=== PATIENT | male | born 1975 | race Caucasian/White ===

== ENCOUNTER 2023-01-18 10:49 | Emergency (ER) | payer BC ==
[2023-01-18] MEDS ORDERED: Bupivacaine 0.5% 10 ML SDV INJECT ONE (11:16)
[2023-01-18] MEDS ORDERED: Lidocaine 1% 10 ML MDV INJECT ONE (11:16)
[2023-01-18] MEDS ORDERED: LORazepam 1 MG Tab PO ONE (11:39)
[2023-01-18] MEDS ORDERED: Cephalexin 500 MG Cap PO ONE (13:28)
== END 2023-01-18 13:52 | disposition home or self-care (01) ==
LOC: JD.ED 10:49
DX: S62.633B Displaced fracture of distal phalanx of left middle finger, initial encounter for open fracture (principal); I10 Essential (primary) hypertension; W23.1XXA Caught, crushed, jammed, or pinched between stationary objects, initial encounter; Y99.0 Civilian activity done for income or pay
CPT/HCPCS: 12002; 73140; 99283; A9270; J3490

== ENCOUNTER 2024-11-08 12:14 | Emergency (ER) | payer BC ==
[2024-11-08] MEDS: Proparacaine 0.5% Ophth Soln 15 ML Bottle EYELF ONE (12:49)
[2024-11-08] MEDS: Fluorescein 1 MG Ophth Strip EYELF ONE (12:50)
== END 2024-11-08 13:15 | disposition home or self-care (01) ==
LOC: JD.ED 12:14
DX: H16.132 Photokeratitis, left eye (principal); I10 Essential (primary) hypertension; Z79.899 Other long term (current) drug therapy
CPT/HCPCS: 99283; J3490